=== PATIENT | male | born 1955 | race Caucasian/White ===

== ENCOUNTER 2020-07-17 08:44 | Emergency (ER) | payer SELFPAY ==
--- NOTE | 2020-07-17 08:35 | ECG_ITS ---
APPROVED REPORT Exam: Resting ECG HR:74 bpm ECG Measurements Heart Rate 74 AXES GA 160 P 6 QRSd 84 QRS 22 QT 372 T -6 QTc 412 Conclusion Normal sinus rhythm Normal ECG Electronically signed by : Tim Steel, 07/17/2020 18:30:40
[2020-07-17 08:44] VITALS: BP 140/86; PULSE 74; RESP 13; TEMP 36.9; O2SAT 95; BMI 33.9
--- NOTE | 2020-07-17 08:46 | [facility].EDGENADL ---
ED Disposition Clinical Impression: Chest pain Qualifiers: Chest pain type: unspecified Qualified Code(s): R07.9 - Chest pain, unspecified Disposition: Home, Self-Care Condition on Discharge: Good Additional Instructions: Please return if any new or worsening symptoms. Otherwise, please follow-up with primary care doctor within the next several days. Referrals: PCP,No [Non-Staff] - - Critical Care Critical Care Time: No Attestation: On , the high probability of a clinically significant, sudden or life threatening deterioration of the following system(s) required my full and direct attention, intervention and personal management. The time I documented below is in addition to time spent performing reported procedures but includes the following listed in this critical care notation. Medical Decision Making - Medical Records Medical records reviewed: Yes: I reviewed the patient's medical records. - Willie Inquiry Pt receiving controlled substance: No Vital Signs: 07/17/20 08:44 Temperature 98.5 F Temperature Source Oral Pulse Rate [Left Radial] 74 Respiratory Rate 13 Blood Pressure [Right Arm] 140/86 Blood Pressure Mean [Right Arm] 104 Blood Pressure Source [Right Arm] Automatic Cuff Blood Pressure Position [Right Arm] Sitting 02 Sat by Pulse Oximetry 95 Oxygen Delivery Method Room Air - Lab Data Lab Results 07/17/20 08:30: WBC 6.9, RBC 4.77, Hgb 13.5 L, Hct 40.2 L, MCV 84.4, MCH 28.3, MCHC 33.5, RDW 13.4, Plt Count 303, MPV 7.2 L, Neut % (Auto) 77.6, Lymph % (Auto) 11.2, Weston % (Auto) 7.5, Eos % (Auto) 2.7, Baso % (Auto) 1.0, Neut # (Auto) 5.4, Lymph # (Auto) 0.8, Weston # (Auto) 0.5, Eos # (Auto) 0.2, Baso # (Auto) 0.1 07/17/20 08:30: Sodium 137, Potassium 4.5, Chloride 101, Carbon Dioxide 26, Anion Gap 14.5, BUN 17, Creatinine 0.80, Estimated Creat Clear 121, Estimated GFR 98, Est GFR ( Amer) 118, Glucose 150 H, Calcium 9.7, Troponin I < 0.01, Lipase 30 12/13/20 11:52: Troponin I < 0.01 Result diagrams: 07/17/20 08:30 07/17/20 08:30 Orders (Tests/Meds): ED MEDICATIONS Discontinued Medications Generic Name Dose Route Start Last Admin Trade Name Pearl PRN Reason Stop Dose Admin Aspirin 325 mg 07/17/20 08:53 07/17/20 09:14 Aspirin 325mg Tablet PO 07/17/20 08:54 Not Given ONCE ONE Aspirin 324 mg 07/17/20 09:14 07/17/20 09:14 Aspirin 81mg Chewable Tablet PO 07/17/20 09:15 324 mg ONCE ONE Administration ORDERS Category Date Time Status Troponin I Q3H Lab 07/17/20 15:00 Ordered - Radiology Data #1 Image(s): Chest Image Reviewed: Yes I reviewed the patient's radiology image Preliminary Findings: Normal/NAD, No Fracture Seen, No Infiltrates Seen - ECG Data Tracing #1 I reviewed this ECG and interpreted as documented below: EKG demonstrates a sinus rhythm at a rate of 81 bpm; QRS 84 ms; WV 162 ms; QTC 427 ms; no acute ST depression/elevation; normal axis Medical Decision Narrative: Patient is a 65-year-old male presenting with some chest discomfort earlier today which is mostly improved after 0.5 mg of p.o. Ativan. EKG obtained immediately upon arrival to the emergency department demonstrates no acute ST elevation/depression or any dysrhythmia. At this time, patient hemodynamically stable on cardiac monitors. We will give 327 mg of chewable aspirin in the emergency department. Differential diagnosis does include ACS versus hypertensive emergency versus anxiety attack versus pancreatitis. At this time, patient had rather atypical pain which improved after p.o. Ativan. He has an elderly male that does have some risk factors so cardiac enzyme testing will be obtained. He states he had a stress test done about 1 week ago that was relatively unremarkable and has had PCI done in the past demonstrating no significant abnormalities based on his report. He states he took his blood pressure at one point this morning and his systolic was almost 200 mmH
--- NOTE | 2020-07-17 08:52 | XR_ITS ---
PROCEDURE: XR CHEST PORTABLE CLINICAL HISTORY: chest pain COMPARISON: No exams were available for comparison FINDINGS: The cardiomediastinal silhouette and pulmonary vascularity are within normal limits. Borderline emphysematous changes seen with mild hyperexpansion of the lung rose. There is no infiltrate and there is no pleural fluid. There prominent multilevel degenerate changes of the thoracic spine. There is partially visualized metallic brackets lower cervical spine likely from previous anterior cervical fusion. IMPRESSION: No acute findings. Dictated by: Dr. Rogers Dupree MD 07/17/2020 12:03 Dr. Rogers Dupree MD in [place] 07/17/2020 12:03
[2020-07-17 09:02] LABS: Basophils # 0.1 K/mm3 (0-0.2); Eosinophils # 0.2 K/mm3 (0.0-0.4); Eosinophils % 2.7 % (0.1-12.0); Hematocrit 40.2 % (42.0-52.0); Hemoglobin 13.5 g/dL (14.1-18.0); Lymphocytes # 0.8 K/mm3 (0.7-4.5); Lymphocytes % 11.2 % (10-50); Mean Corpuscular HGB Conc 33.5 g/dL (31.8-35.4); Mean Corpuscular Hemoglobin 28.3 pg (27.0-31.2); Mean Corpuscular Volume 84.4 fl (80-94); Mean Platelet Volume 7.2 fl (7.4-10.4); Monocytes # 0.5 K/mm3 (0.1-1.0); Monocytes % 7.5 % (1.7-9.3); Neutrophils # 5.4 K/mm3 (1.8-7.8); Neutrophils % 77.6 % (37.0-80.0); Platelet Count 303 K/mm3 (142-424); Red Blood Count 4.77 M/mm3 (4.60-6.20); Red Cell Distribution Width 13.4 % (11.5-17.5); White Blood Count 6.9 K/mm3 (4.8-10.8)
[2020-07-17 09:04] LABS: Chloride 101 mmol/L (98-107)
[2020-07-17 09:05] LABS: Potassium 4.5 mmoL/L (3.5-5.1); Sodium 137 mmol/L (136-145)
[2020-07-17 09:08] LABS: Anion Gap 14.5 mEq/L (5-15); Blood Urea Nitrogen 17 mg/dl (9-20); Calcium 9.7 mg/dl (8.4-10.2); Carbon Dioxide 26 mmol/L (22.0-30.0); Creatinine Clearance Estimated 121 mL/min (50-200); Estimated Glomerular Filt Rate 98 ml/min (>60); GFR (African American) 118 ML/MIN (>60); Glucose 150 mg/dl (74-100); Lipase 30 U/L (23-300)
[2020-07-17 09:21] LABS: Troponin I < 0.01 ng/ml (0.00-0.034)
[2020-07-17 12:23] LABS: Troponin I < 0.01 ng/ml (0.00-0.034)
[2020-07-17 12:56] VITALS: BP 113/66; PULSE 81; RESP 20; TEMP 36.9; O2SAT 95
== END 2020-07-17 12:58 | disposition home or self-care (01) ==
PROVIDERS: Emergency Provider Emergency Medicine; PCP Internal Medicine
DX: R07.9 Chest pain, unspecified (principal); E11.65 Type 2 diabetes mellitus with hyperglycemia; I10 Essential (primary) hypertension; Z88.0 Allergy status to penicillin; Z79.899 Other long term (current) drug therapy
CPT/HCPCS: 71045; 80048; 83690; 84484; 85025; 93005; 99282

== ENCOUNTER 2024-10-01 13:45 | Outpatient (RCR) | payer MEDICARE, SELFPAY | END 2024-10-01 23:59 | disposition home or self-care (01) | LOC: PT 13:45 | PROVIDERS: Visit Provider Internal Medicine | DX: M54.16 Radiculopathy, lumbar region (principal) | CPT/HCPCS: 97110; 97163 ==